=== PATIENT | male | born 1980 | race African-American/Black ===

== ENCOUNTER 2016-12-07 16:10 | Emergency (ER) | payer OTHER ==
[~2016-12-07] VITALS: Ht 185.4 cm; Wt 129.4 kg
[2016-12-07 16:12] VITALS: TEMP 36.9; Ht 185.4 cm; Wt 129.4 kg
[2016-12-07] MEDS ORDERED: LIDOCAINE HCL 5% OINT 30 GM TUBE EXT ONE (16:45)
[2016-12-07] MEDS ORDERED: ACYCLOVIR 400 MG TAB PO ONE (16:45)
[2016-12-07] MEDS ORDERED: LIDO4CRE10 TOP (16:48)
[2016-12-07] MEDS ORDERED: ACYC1CAP8 PO ×2 (16:48→16:53)
[2016-12-07 17:35] VITALS: BP 156/92; PULSE 88; O2SAT 100
--- NOTE | 2016-12-07 19:01 | EMERGENCY ROOM VISIT NOTE ---
History First contact with patient: 16:25 Chief Complaint: PENIS PAIN Stated Complaint: PT REQUESTING TO ONLY TALK TO TRIAGE Nursing Triage Summary: Pt states, "I had some issues in my penis and both my testicles. I had an issue that my boyfriend cheated, but I got tested and treated for that. The other issue is I have high blood pressure because of the stress of my job. I have multiple concerns and haven't been able to get anything checked out. I also have ulcers on my tongue and have a bruise on my left forearm, but didn't hit anything." Sx x 2 mos. History of Present Illness The patient is a 36 year old male who presents to the Emergency Room with complaints of painful lesions on his scrotum. The patient states he has had an episode like this in the past that resolved. He states this is worse than his previous episode, and rates his pain a 10/10. The patient is a homosexual male and states that his partner may achieve on him. He is concerned for STDs. Because of this concern he did have recent treatment for gonorrhea and chlamydia in [place]. The patient is from the [facility] and is traveling with his significant other. The patient has not had fever or chills. No difficulty using the bathroom. No anorectal pain. Review of Systems More than 10 systems were reviewed and otherwise negative with the exception of history of present illness. Past Medical/Surgical History No reported chronic medical disease Family History No pertinent family history Social History Smoking Status: Former Smoker Current/Historical Medications Scheduled Acyclovir (Zovirax), 200 MG PO 5 TIMES DAILY Acyclovir (Zovirax), 200 MG PO UD Scheduled PRN Lidocaine (Anorectal) (Lidocaine), 1 APPLN TOP TID PRN for Pain Physical Exam Vital Signs Date Time Temp Pulse Resp B/P (MAP) Pulse Ox O2 Delivery O2 Flow Rate FiO2 12/07/16 17:35 88 18 156/92 100 12/07/16 16:12 36.9 99 18 176/104 98 Room Air Pain Rating (0-10): 8.0 Physical Exam VITALS: Vitals are noted on the nurse's note and reviewed by myself. Vital signs stable. GENERAL: Well-developed, well-nourished, black male, who is in no acute distress and resting comfortably. Patient is cooperative with the examination. HEART: Regular rate and rhythm without murmurs gallops or rubs. LUNGS: Clear to auscultation bilaterally without wheezes, rales or rhonchi. No retractions or accessory muscle use. : Normal-appearing external male phallus that is circumcised without urethral drainage or discharge. There are several shallow herpetic-appearing ulcerations throughout the scrotum and base of the phallus, measuring 5 mm in diameter at the largest. Number of ulcerations is greater than 6. NEURO: Patient was alert and oriented to person place and time. CN II through XII grossly intact. Medical Decision & Procedures Medications Administered Medications (Trade) Dose Ordered Sig/Susan Route Start Time Stop Time Status Last Admin Dose Admin Acyclovir (Zovirax Tab) 200 mg NOW ONCE PO 12/07/16 16:45 12/07/16 16:46 DC 12/07/16 17:17 200 MG Lidocaine HCl (Xylocaine Oint 5%) 1 appln NOW ONCE EXT 12/07/16 16:45 12/07/16 16:46 DC 12/07/16 17:16 1 APPLN ED Course Physical exam and history were performed. Nursing notes, EMR, and Medication List were personally reviewed. Patient appears to have genital herpes on examination. This does correlate with his symptoms. He is a homosexual male and has increased risks for this. He has evidently had this in the past, and I feel this is a likely recurrence. The patient is unsure of his insurance, as he applied for Medicare back in the [facility] [place]. Because of this I will give him prescriptions for acyclovir and topical lidocaine. I did engage case management regarding this patient to help facilitate his insurance. The patient should follow with his primary care physician, the [facility] of [facility], or the [facility] if he desires further STD testing. The patient did have some elevated blood pressure here in the department. He states that he has not been taking his blood pressure medication. I offered him a refill of his medication, however he states that he is unsure what he takes for this. The patient was referred back to his PCP regarding this. He was otherwise invited back to the emergency department with any new, worsening, or concerning symptoms. The chart was completed utilizing [employer] Voice Recognition Software. Grammatical errors, random word insertions, pronoun errors, and incomplete sentences are an occasional consequence of this system due to software limitations, ambient noise, and hardware issues. Any formal questions or concerns about the content, text, or information contained within the body of this dictation should be directly addressed to the provider for clarification. . Medical Decision Differential diagnosis includes, but is not limited to: Abscess, cellulitis, STD , herpes, laceration, abrasion, and others Blood Pressure Screening Patient's blood pressure: Elevated blood pressure Blood pressure disposition: Referred to PCP Impression Primary Impression: Genital herpes Departure Information Dispostion Home / Self-Care Condition FAIR Prescriptions Lidocaine (Anorectal) (Lidocaine) 5 % Cre 1 APPLN TOP TID Y for Pain, #1 TUBE 1 Refill Prov: Waldo Lazo PA-C 12/07/16 Acyclovir (Zovirax) 200 Mg Cap 200 MG PO 5 TIMES DAILY for 10 Days, #50 CAP Prov: Waldo Lazo PA-C 12/07/16 Forms HOME CARE DOCUMENTATION FORM, IMPORTANT VISIT INFORMATION Patient Instructions Herpes Care Sores, My [facility] Additional Instructions You were seen and evaluated today on an emergency basis only. This is not a substitute for, or an effort to provide, complete comprehensive medical care. It is not possible to recognize and treat all injuries or illnesses in a single emergency department visit. For this reason it is recommended that you followup with your primary care physician as soon as possible for ongoing care and evaluation. Take acyclovir 200 mg 5 times daily for the next 10 days. Apply topical lidocaine 3 times daily as needed for pain control. For baseline pain relief you may alternate ibuprofen and acetaminophen every 4 hours for pain control. Take 600 mg ibuprofen (Advil) and then 4 hours later take 1000 mg acetaminophen (Tylenol). Do not take more than 3000 mg acetaminophen in a single day. Follow-up with your primary care physician regarding your blood pressure. If you desire additional STD testing you may wish to follow with the [facility], as they do provide some services for men. You are welcome to return to the emergency department anytime with new, worsening, or concerning symptoms.
== END 2016-12-07 17:40 | disposition home or self-care (01) ==
LOC: C.EDB 16:13 → C.EDA 17:40
DX: A60.02 Herpesviral infection of other male genital organs (principal); Z87.891 Personal history of nicotine dependence